=== PATIENT | female | born 1990 | race Caucasian/White ===

== ENCOUNTER 2017-09-10 09:11 | Emergency (ER) | payer SELFPAY ==
[~2017-09-10] VITALS: Ht 167.6 cm; Wt 76.2 kg
[2017-09-10 09:49] LABS: HEMATOCRIT 34.8 % (36.0-46.0); HEMOGLOBIN 11.9 G/DL (11.9-15.5); MCH 33.3 PG (29.0-34.0); MCHC 34.2 G/DL (30.0-36.0); MCV 97.5 FL (83-99); PLATELET COUNT 209 K/uL (156-360); RBC DIS.WIDTH-CV 12.2 % (11.8-14.6); RED BLOOD COUNT 3.57 M/uL (3.80-5.20); WHITE BLOOD COUNT 8.1 K/uL (4.1-10.2)
[2017-09-10 09:50] LABS: APPEARANCE CLEAR ((CLEAR)); BILIRUBIN NEGATIVE; BLOOD NEGATIVE; COLOR YELLOW ((YELLOW)); GLUCOSE (STRIP) NEGATIVE; KETONES NEGATIVE; LEUKOCYTES NEGATIVE; NITRITE NEGATIVE; PROTEIN (STRIP) NEGATIVE; SPECIFIC GRAVITY 1.016 (1.000-1.030); UCUL ADDED? NO; UROBILINOGEN 0.2 MG/DL (0.2-1.0)
[2017-09-10 10:05] LABS: ALBUMIN 4.2 g/dL (3.2-4.8)
[2017-09-10 10:06] LABS: CHLORIDE 108 mEq/L (99-109); POTASSIUM 4.2 mEq/L (3.7-5.4); SODIUM 139 mEq/L (136-147)
[2017-09-10 10:08] LABS: GLUCOSE 94 mg/dL (70-99); TOTAL PROTEIN 6.8 g/dL (6.4-8.3)
[2017-09-10 10:10] LABS: TOTAL BILIRUBIN 0.3 mg/dL (0.0-1.0)
[2017-09-10 10:11] LABS: ALKALINE PHOSPHATASE 63 IU/L (3-129)
[2017-09-10 10:12] LABS: CREATININE 0.8 mg/dL (0.6-1.3)
[2017-09-10 10:13] LABS: AST (GOT) 35 IU/L (2-34); GFR ESTIMATE (CALCULATED) > 59 mL/min/; UREA NITROGEN (BUN) 14 mg/dL (9-23)
[2017-09-10 10:15] LABS: ALT (GPT) 48 IU/L (3-49)
[2017-09-10 10:21] LABS: QUANTITATIVE HCG < 4.0 MIU/ML
[2017-09-10 10:51] LABS: LIPASE 25 U/L (1.0-51.0)
[2017-09-10] MEDS ORDERED: PERCOCET 5/31 TABLET PO (12:32)
[2017-09-10] MEDS ORDERED: ZOFRAN4 MG PO (12:32)
[2017-09-10 13:20] VITALS: BP 118/75
== END 2017-09-10 13:34 | disposition home or self-care (01) ==
LOC: EME 09:11
DX: N83.202 Unspecified ovarian cyst, left side (principal); R10.84 Generalized abdominal pain; R11.0 Nausea; R19.7 Diarrhea, unspecified; F17.200 Nicotine dependence, unspecified, uncomplicated
CPT/HCPCS: 74176; 80053; 81003; 83690; 84702; 85027; 99281; 99285; J0780; J1885

== ENCOUNTER 2017-11-25 20:25 | Emergency (ER) | payer OTHER ==
[~2017-11-25] VITALS: Ht 167.6 cm; Wt 73.5 kg
[~2017-11-25 20:25] MED LIST: PERCOCET 5/31 TABLET PO; ZOFRAN4 MG PO
[2017-11-25] MEDS ORDERED: FLEXERIL10 MG PO (23:13)
[2017-11-25] MEDS ORDERED: NORCO 5/3251 TABLET PO (23:13)
[2017-11-26 00:05] VITALS: BP 136/78
== END 2017-11-26 00:06 | disposition home or self-care (01) ==
LOC: EME 20:25
DX: S16.1XXA Strain of muscle, fascia and tendon at neck level, initial encounter (principal); S20.219A Contusion of unspecified front wall of thorax, initial encounter; V63.5XXA Driver of heavy transport vehicle injured in collision with car, pick-up truck or van in traffic accident, initial encounter; Y92.410 Unspecified street and highway as the place of occurrence of the external cause; F17.200 Nicotine dependence, unspecified, uncomplicated
CPT/HCPCS: 71046; 71120; 72040; 93005; 99281; 99284